=== PATIENT | female | born 1995 | race Caucasian/White ===

== ENCOUNTER 2021-03-05 13:28 | Emergency (ER) | payer MEDICAID, SELFPAY ==
[~2021-03-05] VITALS: Ht 157.5 cm; Wt 108.9 kg
[2021-03-05 13:30] VITALS: BP_SYST 143
--- NOTE | 2021-03-05 13:30 | NUR ---
PT TRIAGED IN TRIAGE TENT AND AWAITING ER BED.
--- NOTE | 2021-03-05 13:38 | NUR ---
PT STATES THAT SHE IS AT [facility] RIGHT NOW AND DOES NOT HAVE A INHALER THERE. PT STATES SHE HAS ASTHMA AND USES AN ALBUTEROL INHALER. JUST HERE TO GET PRESCRIPTION
--- NOTE | 2021-03-05 14:20 | NUR ---
DR DOS SANTOS OUT TO TRIAGE TENT TO EVALUATE PT.
[2021-03-05] MEDS ORDERED: ALBMDI INH (14:36)
--- NOTE | 2021-03-05 15:10 | NUR ---
DR DOS SANTOS OUT TO SPEAK WITH PT. AWIATING DISCHARGE ORDERS
--- NOTE | 2021-03-05 15:33 | NUR ---
Patient given written and verbal discharge instructions and verbalizes understanding. ER MD discussed with patient the results and treatment provided. Patient in stable condition. ID arm band removed. Rx of ALBUTEROL given. Patient educated on pain management and to follow up with PMD. Pain Scale 0/10. Opportunity for questions provided and answered. Medication side effect fact sheet provided.
== END 2021-03-05 15:33 | disposition home or self-care (01) ==
LOC: SED 13:28
DX: J45.909 Unspecified asthma, uncomplicated (principal); Z76.0 Encounter for issue of repeat prescription; Z79.899 Other long term (current) drug therapy
CPT/HCPCS: 99281